=== PATIENT | male | born 1950 | race Caucasian/White ===

== ENCOUNTER 2018-10-17 09:10 | Emergency (ER) | payer MEDICARE, OTHER ==
[~2018-10-17] VITALS: Ht 188 cm; Wt 135.2 kg
[2018-10-17] MEDS ORDERED: AMLODIPINE BES2.5 MG PO (09:13)
[2018-10-17] MEDS ORDERED: FLUOXETINE HCL20 M1 PO (09:14)
[2018-10-17] MEDS ORDERED: ATORVASTATIN CA80 MG PO (09:14)
[2018-10-17] MEDS ORDERED: CLOPIDOGREL75 MG PO (09:14)
[2018-10-17] MEDS ORDERED: ASPIRIN81 MG PO (09:14)
[2018-10-17] MEDS ORDERED: HYDROCHLOROTHIA25 MG PO (09:15)
[2018-10-17] MEDS ORDERED: GABAPENTIN100 MG PO (09:15)
[2018-10-17] MEDS ORDERED: HUMULIN R100 UNIT/1 INJ (09:16)
[2018-10-17] MEDS ORDERED: GLUCOPHAGE500 MG PO (09:17)
[2018-10-17] MEDS ORDERED: ISOSORBIDE MON120 MG PO (09:17)
[2018-10-17] MEDS ORDERED: TOPROL XL25 MG PO (09:17)
--- OUTSIDE RECORDS SUMMARY | 2018-10-17 13:42 | XMS ---
PreManage Notification: ITALIA CARDONA Security Counter Clerk Events No recent Security Events currently on file CRITERIA MET - 6 ED Visits in 6 Months CARE PROVIDERS [facility] Current PHONE: Unknown [facility] Current PHONE: [phone] Dipak has no Care Guidelines for this patient. Parveen VISIT COUNT (12 MO.) [facility] TOTAL 6 NOTE: Visits indicate total known visits. ED/UCC VISIT TRACKING (12 MO.) 10/17/2018 09:11 [facility] TYPE: Emergency COMPLAINT: - DIZZINESS 07/24/2018 06:40 [facility] TYPE: Emergency DIAGNOSES: - Transient cerebral ischemic attack, unspecified - Hypoglycemia, unspecified - Dizziness - Shortness of Breath 07/13/2018 08[facility] [facility] DIAGNOSES: - Other chest pain - Chest Pain 07/10/2018 08:37 [facility] TYPE: Emergency DIAGNOSES: - Chest pain, unspecified - Essential (primary) hypertension - Atherosclerotic heart disease of [place] coronary artery without angina pectoris - Headache (Adult - New Onset Or New Symptoms) - Shortness of Breath - Chest Pain - Dizziness 06/26/2018 19:43 [facility] TYPE: Emergency DIAGNOSES: - Abnormal Lab - Essential (primary) hypertension - Hyperkalemia - Disorder of kidney and ureter, unspecified 06/05/2018 12:46 [facility] TYPE: Emergency DIAGNOSES: - Essential (primary) hypertension - Chest pain, unspecified - Dizziness - Obstructive sleep apnea (adult) (pediatric) - Type 2 diabetes mellitus with unspecified complications - Chest Pain - Atherosclerotic heart disease of [place] coronary artery without angina pectoris - Hyperlipidemia, unspecified INPATIENT VISIT TRACKING (12 MO.) 07/13/2018 08:50 [facility] TYPE: Cardiology DIAGNOSES: - Other chest pain [email or web address]
--- NOTE | 2018-10-18 11:38 | EKG ---
[facility] [address] [place], [place] [address] Signed Sinus bradycardia Nonspecific T wave abnormality Abnormal ECG No previous ECGs available Confirmed by MITRA LOBO DO ([id number]) on 10/18/2018 11:38:34 AM Electronically Signed By: MITRA LOBO DO 10/18/18 1138 PATIENT NAME: ITALIA CARDONA Electrocardiogram DATE OF : 50 PHYSICIAN: MITRA LOBO DO REPORT #: [id number] REPORT IS CONFIDENTIAL AND NOT TO BE RELEASED WITHOUT AUTHORIZATION
== END 2018-10-17 13:14 | disposition short-term general hospital (02) ==
LOC: ED 09:10
DX: R42 Dizziness and giddiness (principal); R53.1 Weakness; Z87.891 Personal history of nicotine dependence; Z88.0 Allergy status to penicillin; Z88.8 Allergy status to other drugs, medicaments and biological substances; Z79.899 Other long term (current) drug therapy; Z79.82 Long term (current) use of aspirin; Z79.4 Long term (current) use of insulin
CPT/HCPCS: 80053; 81001; 83880; 84484; 85025; 93005; 93010; 96360; 96361; 99285-25; J7030